=== PATIENT | male | born 1945 | race Caucasian/White ===

== ENCOUNTER 2017-12-11 20:31 | Emergency (ER) | payer OTHER ==
--- NOTE | 2017-12-11 21:59 | EDM.PDOC ---
ED HPI GENERAL MEDICAL PROBLEM - General Chief Complaint: Bite:Animal, Insect Stated Complaint: TICK BITE L LEG Time Seen by Provider: 12/11/17 21:16 Source of Information: Reports: Patient, Family () History Limitations: Reports: No Limitations - History of Present Illness INITIAL COMMENTS - FREE TEXT/NARRATIVE: tick bite to left leg; this is a 72 year old male present to ER for evaluation of tick bite. reports on Wednesday (4 days) removed an engorged tick from the back of leg. cleaned the area, now the spot where the tick was is red, swollen and had has a circular rash. called the nurse line, was told to come to ER for evaluation. concerns of lymes disease. Onset Date: 12/08/17 Duration: Day(s): Location: Reports: Lower Extremity, Left Quality: Reports: Ache Severity: Moderate Improves with: Reports: None Worsens with: Reports: None Associated Symptoms: Reports: No Other Symptoms - Related Data Allergies Allergy/AdvReac Type Severity Reaction Status Date / Time terazosin Allergy Cannot Verified 12/11/17 21:17 Remember Home Meds: Home Meds Allopurinol [Zyloprim] 12/11/17 [History] Gabapentin [Neurontin] 12/11/17 [History] Levodopa 12/11/17 [History] Lisinopril 0.5 tab 12/11/17 [History] Methocarbamol 12/11/17 [History] Nph, Human Insulin Isophane [Humulin N] 12/11/17 [History] Simvastatin [Zocor] 12/11/17 [History] Zolpidem Tartrate 12/11/17 [History] metFORMIN [Glucophage] 12/11/17 [History] traZODone 12/11/17 [History] Past Medical History Neurological History: Reports: Other (See Below) 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 Endocrine/Metabolic History: Reports: Diabetes, Type II - Past Surgical History GI Surgical History: Reports: Appendectomy Musculoskeletal Surgical History: Reports: Arthroscopic Knee, Hip Replacement, Shoulder Surgery Social & Family History - Tobacco Use Smoking Status *Q: Never Smoker ED ROS GENERAL - Review of Systems Review Of Systems: See Below Constitutional: Reports: Malaise HEENT: Reports: No Symptoms Respiratory: Reports: No Symptoms Cardiovascular: Reports: No Symptoms, Palpitations GI/Abdominal: Reports: No Symptoms : Reports: No Symptoms Skin: Reports: Other (red circular rash to posterior left thigh from tick bite.) Neurological: Reports: No Symptoms Psychiatric: Reports: No Symptoms Hematologic/Lymphatic: Reports: No Symptoms Immunologic: Reports: No Symptoms ED EXAM, ANIMAL BITE - Physical Exam Exam: See Below Exam Limited By: No Limitations General Appearance: Alert Respiratory/Chest: No Respiratory Distress, Lungs Clear, Normal Breath Sounds, No Accessory Muscle Use Cardiovascular: Normal Peripheral Pulses, Regular Rate, Rhythm, No Edema, No Murmur Extremities: Leg Pain (left posterior thigh with 2cm ciruclar rash with central puncture wound.) Neurological: Alert, Oriented, CN II-XII Intact, Normal Cognition, Normal Gait, Normal Reflexes, No Motor/Sensory Deficits Psychiatric: Normal Affect, Normal Mood Skin Exam: Warm/Dry, Rash (left posterior thigh) Lymphatic: No Adenopathy Course - Vital Signs Last Recorded V/S: Last Vital Signs Temp 36.2 C 12/11/17 21:34 Pulse 66 12/11/17 21:34 Resp 14 12/11/17 21:34 BP 133/63 12/11/17 21:34 Pulse Ox 96 12/11/17 21:34 Departure - Departure Time of Disposition: 22:16 Disposition: Home, Self-Care 01 Condition: Good Clinical Impression: Lyme disease, acute Tick bite of left lower leg Qualifiers: Encounter type: initial encounter Qualified Code(s): S80.862A - Insect bite ( nonvenomous), left lower leg, initial encounter - Discharge Information Instructions: Tick Bite Information, Adult, [id number], Lyme Disease Referrals: PCP,None [Primary Care Provider] - Forms: ED Department Discharge Care Plan Goals: acute Lymes disease, tick bite to left leg -start Doxy 100mg take two times a day for 14 days -may take Tylenol or Motrin for pain or fever. follow up with Primary Care for recheck in 2 weeks return to ER or Urgent Care if not improved or symptoms worsen. - Problem List & Annotations (1) Lyme disease, acute SNOMED Code(s): 459157342 Code(s): A69.20 - LYME DISEASE, UNSPECIFIED Status: Acute Priority: High (2) Tick bite of left lower leg SNOMED Code(s): 89080681 Code(s): S80.862A - INSECT BITE (NONVENOMOUS), LEFT LOWER LEG, INITIAL ENCOUNTER; W57.XXXA - BIT/STUNG BY NONVENOM INSECT & OTH NONVENOM ARTHROPODS, INIT Status: Acute Priority: High Qualifiers: Encounter type: initial encounter Qualified Code(s): S80.862A - Insect bite (nonvenomous), left lower leg, initial encounter; W57.XXXA - Bitten or stung by nonvenomous insect and other nonvenomous arthropods, initial encounter - Problem List Review Problem List Initiated/Reviewed/Updated: Yes - Assessment/Plan Plan: acute Lymes disease, tick bite to left leg -start Doxy 100mg take two times a day for 14 days -may take Tylenol or Motrin for pain or fever. follow up with Primary Care for recheck in 2 weeks return to ER or Urgent Care if not improved or symptoms worsen.
== END 2017-12-11 22:16 | disposition home or self-care (01) ==
LOC: JP.ED 20:31
DX: S80.862A Insect bite (nonvenomous), left lower leg, initial encounter (principal); A69.20 Lyme disease, unspecified; E11.9 Type 2 diabetes mellitus without complications; Z88.8 Allergy status to other drugs, medicaments and biological substances; Z79.84 Long term (current) use of oral hypoglycemic drugs; W57.XXXA Bitten or stung by nonvenomous insect and other nonvenomous arthropods, initial encounter
CPT/HCPCS: 99282